=== PATIENT | male | born 1965 | race Hispanic/Latino ===

== ENCOUNTER 2018-05-25 07:38 | Day surgery (SDC) | payer OTHER, SELFPAY ==
[2018-05-25] VITALS (7 sets, daily range): BP systolic 113–154; BP diastolic 82–94; PULSE 69–80; RESP 12–18; TEMP 36.1–36.9; O2SAT 94–98; BMI 31.4
--- NOTE | 2018-05-25 | PATH_ITS ---
[facility] Accession Number: [id number] . 01 Material submitted: . PART A: GASTRIC POLYP PART B: GE JUNCTION PART C: POLYP DESCENDING COLON . 02 Diagnosis: A. Biopsies, Gastric Polyp: Superficial fragments of fundic mucosa with apparent foveolar hyperplasia. Negative for atypia and malignancy. . B. Biopsy, Gastroesophageal Junction: Squamocolumnar junctional mucosa with chronic inflammation, reactive epithelial changes, and scattered squamous intraepithelial eosinophils, all consistent with changes of chronic reflux. Negative for specialized metaplasia of Li's type esophagus. Negative for dysplasia and malignancy. . C. Biopsy, Polyp Descending Colon: Hyperplastic polyp. MR/05/26/2018 . 02 Electronically signed: . Mahad Steward MD, Pathologist NPI- [id number] . 01 Gross description: . Received three formalin-filled containers each labeled with the patient's name. . A. In a container labeled gastric polyp, the specimen consists of a 0.1 cm portion of tissue. Entirely submitted in cassette A. B. In a container labeled GE junction, the specimen consists of two extremely tiny less than 0.1 to 0.1 cm portions of tissue. Entirely submitted in cassette B. C. In a container labeled polyp descending colon are two less than 0.1 to 0.2 cm portions of tissue. Entirely submitted in cassette C. ([facility]:[id number]) /[facility] . 02 Pathologist provided ICD-10: K21.0 . 02 CPT . 647608, 386435, 549223 Performed at: 01 [address] [address], [place], [place] [id number] MD Aniket Manrique MD Phone: [phone] Performed at: 02 [facility] [address] [place] [id number] MD Terri Quezada MD Phone: [phone]
--- NOTE | 2018-05-25 08:14 | PM.HP.1 ---
History of Present Illness Date Patient Seen: 05/25/18 Chief complaint: [id number] COLONOSCOPY/EGD W/POSS BX Narrative: The patient is a 53-year-old male who was last seen in our office on April 26, 2018 for a history of episodic hematemesis as well as a positive fecal occult blood test. Please refer to our office note for further details. The patient has had no further recurrence of episodes of hematemesis since that office visit and has had no evidence of melena or hematochezia Patient History Medical History Depression (Acute) Hematemesis (Acute) History of alcohol abuse (Acute) History of pancreatitis (Acute ~03/2013) History of vomiting (Acute) Hypercholesterolemia (Acute) Hypertension (Acute) Surgical History History of colonoscopy (Acute ~2015) History of esophagogastroduodenoscopy (EGD) (Acute) Social History household members: none Meds Home Medications Medication Instructions Recorded Confirmed Type aspirin 81 mg PO DAILY 05/25/18 05/25/18 History atorvastatin 80 mg PO DAILY 05/25/18 05/25/18 History bupropion HCl [Wellbutrin XL] 100 mg PO DAILY 05/25/18 05/25/18 History bupropion HCl [Wellbutrin XL] 350 mg PO DAILY 05/25/18 05/25/18 History lisinopril 05/25/18 History omeprazole 80 mg PO DAILY 05/25/18 05/25/18 History sertraline [Zoloft] 200 mg PO DAILY 05/25/18 05/25/18 History Allergies Allergy/AdvReac Type Severity Reaction Status Date / Time No Known Drug Allergies Allergy Verified 05/24/18 14:16 Exam Narrative Exam Narrative: General: Patient is overweight, not in apparent distress Cardiovascular: Regular rate and rhythm, no murmurs, rubs, or gallops; no evidence of edema; no palpable abdominal aortic aneurysm Gastrointestinal: Normoactive bowel sounds, soft, nontender, nondistended, no rebound tenderness, no hepatosplenomegaly, no evidence of hernia Assessment & Plan Assessment & Plan narrative: A 53-year-old male with a history of episodic hematemesis and a positive fecal occult blood test who is here for upper endoscopy and colonoscopy for further evaluation Regarding the procedure(s), the risks and potential complications, benefits, and alternatives (including not doing the procedure) were discussed with the patient. The risks include but are not limited to bleeding, splenic injury, infection, perforation which may require surgical intervention, missed lesions, and adverse reactions to sedative medicines. After a question and answer period, the patient agreed to proceed with the procedure(s) and gives informed consent.
[2018-05-25] MEDS: SODIUM CHLORIDE 0.9% 1,000 ML 70 ML IV (08:22)
--- NOTE | 2018-05-25 08:37 | P.OP.ENDO_ITS ---
Operative Date/Time/Diagnoses Date of procedure: 05/25/18 Procedure Notes Procedure in detail: Surgeon: Prakash Morse MD Procedure: Esophagogastroduodenoscopy with biopsy and colonoscopy with polypectomy via biopsy Preoperative diagnosis: Hematemesis, positive fecal occult blood test Postoperative diagnosis: LA grade C reflux esophagitis status post biopsy, small hiatal hernia, multiple gastric polyps status post outside industrial sales representative biopsies; descending colon polyp status post polypectomy, grade 2 internal hemorrhoids Medications: Conscious sedation using 5 mg IV of Midazolam and 100 mcg IV of Fentanyl for EGD; additional 1 mg of IV midazolam for colonoscopy Preanesthesia Assessment An H and P was performed/updated and the Px?s ASA class is 2. The procedure was discussed in detail with the patient. The potential risks and complications including infection, bleeding, missed lesions, perforation, need for surgery in case of perforation, prolonged hospital stay, and were explained. A brief question and answer period was allotted and once all questions were answered, informed consent was obtained. The patient was brought back to the procedure room and placed on standard monitoring. The patient?s vital signs were monitored continuously throughout the entire procedure. Prior to starting, a timeout was performed to confirm the patient?s identity, allergies, medications, and procedure. Procedure in detail The patient was placed in left lateral decubitus position and a bite block was inserted. The tip of the upper endoscope was placed into the mouth and advanced without difficulty under direct visualization into the esophagus. Esophagus: There was note of LA grade C reflux esophagitis in the distal esophagus which was biopsied with minimal bleeding Stomach: Small hiatal hernia; there was note of multiple semi pedunculated and pedunculated polyps throughout the gastric body measuring 5 to 12 mm. Quenching Car Operator biopsies were taken of the largest polyp Duodenum: Normal visualized duodenum to the 2nd portion After the upper endoscopy, preparations were made for the colonoscopy. Once adequate sedation was obtained a BATSHEVA was performed. The digital rectal examination did not reveal any palpable lesions. The tip of the colonoscope was placed in the anal canal and advanced without difficulty all the way to the cecum which was identified by the appendiceal orifice and the ileocecal valve. Careful examination of all molina of the colon was performed with irrigation of any residual stool. In the descending colon, a 3 mm sessile polyp was found and removed by means of cold forceps. Resection and retrieval were complete with minimal bleeding. Retroflexion was performed in the rectum which revealed grade 2 nonbleeding internal hemorrhoids. The patient tolerated the procedure well and will be brought back to the recovery area to be discharged once criteria are met. The prep was judged to be good/excellent and adequate to identify polyps less than 5 mm. The withdrawal time was 8 min. The total physician intraservice time was 23 min. Complications There were no complications and estimated blood loss was minimal. Recommendations Resume previous diet Continue outpatient medications, including omeprazole Anti-reflux measures at all times Avoid any food triggers for reflux symptoms Follow-up pathology results Repeat upper endoscopy in 12 weeks to check healing Repeat colonoscopy in 5 or 10 years depending on pathology results Follow-up at our office with Dr. Chacon if with recurrent symptoms If you have trouble with your hemorrhoids you can also call our office to schedule a hemorrhoid banding evaluation. An emergency contact number was given to the patient for any complications related to the procedure
[2018-05-25] MEDS: MIDAZOLAM 5 MG/5 ML VIAL IV (08:50)
[2018-05-25] MEDS: fentaNYL 250 MCG/5 ML INJ IV (08:52)
--- NOTE | 2018-05-25 09:05 | PM.DS.1 ---
History of Present Illness Chief complaint: [id number] COLONOSCOPY/EGD W/POSS BX Narrative: The patient is a 53-year-old male who was last seen in our office on April 26, 2018 for a history of episodic hematemesis as well as a positive fecal occult blood test. Please refer to our office note for further details. The patient has had no further recurrence of episodes of hematemesis since that office visit and has had no evidence of melena or hematochezia Discharge Providers Discharge Date: 05/25/18 Primary care physician: Jenna Cotton Consults: 05/25/18 08:17 Consult to Respiratory Therapy Evaluate & Treat Comment: Physician Instructions: Evaluate and treat Discharge provider: Prakash Morse MD Exam Vital Signs (past 8 hours): - 05/25/18 08:06 Temperature 98.4 F Pulse Rate 78 Respiratory Rate 15 Blood Pressure 154/91 H Pulse Oximetry 94 Oxygen Delivery Method Room Air Narrative Exam Narrative: General: Patient is overweight, not in apparent distress Cardiovascular: Regular rate and rhythm, no murmurs, rubs, or gallops; no evidence of edema; no palpable abdominal aortic aneurysm Gastrointestinal: Normoactive bowel sounds, soft, nontender, nondistended, no rebound tenderness, no hepatosplenomegaly, no evidence of hernia Discharge Plan Discharge Med Rec/Prescriptions Prescriptions: Continued bupropion HCl [Wellbutrin XL] 300 mg Tablet Extended Release 24 Hr 350 mg PO DAILY RF: 0 bupropion HCl [Wellbutrin XL] 150 mg Tablet Extended Release 24 Hr 100 mg PO DAILY RF: 0 sertraline [Zoloft] 100 mg Tablet 200 mg PO DAILY RF: 0 omeprazole 40 mg Capsule,Delayed Release(Dr/Ec) 80 mg PO DAILY RF: 0 lisinopril 10 mg Tablet RF: 0 atorvastatin 80 mg Tablet 80 mg PO DAILY RF: 0 aspirin 81 mg Tablet,Delayed Release (Dr/Ec) 81 mg PO DAILY RF: 0 Follow up/Referrals: Jenna Cotton [Primary Care Provider] - Discharge Orders: Discharge (Order); Ordered 05/25/18 Ordered By: Prakash Morse Provider Discharge Instructions Diet: Diet as Tolerated Visit Report/Discharge Packet Stand Alone Forms: Colonoscopy Result: [facility], EGD Result: [facility] Discharge Data Primary Care Provider: Jenna Cotton Attending Provider: Prakash Morse
== END 2018-05-25 09:45 | disposition home or self-care (01) ==
PROVIDERS: PCP Physician Assistant Medical; Visit Provider Internal Medicine Gastroenterology
PROC: 0DJ08ZZ Inspection of Upper Intestinal Tract, Via Natural or Artificial Opening Endoscopic (ICD-10-PCS; CPT 43235; principal; 2018-05-25 09:00)
PROC: 0DJD8ZZ Inspection of Lower Intestinal Tract, Via Natural or Artificial Opening Endoscopic (ICD-10-PCS; CPT 45378; 2018-05-25 09:00)
DX: R19.5 Other fecal abnormalities (principal); K92.0 Hematemesis; K21.0 Gastro-esophageal reflux disease with esophagitis; K44.9 Diaphragmatic hernia without obstruction or gangrene; K31.7 Polyp of stomach and duodenum; K64.1 Second degree hemorrhoids; D12.4 Benign neoplasm of descending colon; I10 Essential (primary) hypertension; E78.00 Pure hypercholesterolemia, unspecified; F32.9 Major depressive disorder, single episode, unspecified
CPT/HCPCS: 45380; 43239; 88305; J2250; J3010

== ENCOUNTER 2018-08-31 10:51 | Day surgery (SDC) | payer OTHER, SELFPAY ==
[2018-08-31] VITALS (8 sets, daily range): BP systolic 119–135; BP diastolic 80–94; PULSE 65–79; RESP 14–16; TEMP 36.4–36.6; O2SAT 91–99; BMI 30.9
--- NOTE | 2018-08-31 | PATH_ITS ---
[facility] Accession Number: [id number] . 01 Material submitted: . esophagus - DISTAL ESOPHAGUS . 02 Diagnosis: Distal Esophagus, Biopsy: Squamocolumnar junctional mucosa with no diagnostic abnormality. Negative for intestinal metaplasia. Negative for dysplasia and malignancy. [facility]/09/02/2018 . 02 Electronically signed: . Terri Quezada MD, Pathologist NPI- [id number] . 01 Gross description: . DISTAL ESOPHAGUS: Received in formalin is 1 fragment(s) of arias, soft tissue measuring 0.1 x 0.1 x 0.1 cm which is entirely submitted and submitted entirely in 1 cassette(s) /[facility] /[facility] . 02 Microscopic: . An alcian blue stain was performed to evaluate for intestinal metaplasia and is negative. The control stain showed appropriate reactivity. . 02 Pathologist provided ICD-10: R13.10 . 02 CPT . 472810, 557428 Performed at: 01 [facility] [address] [facility], [place], [place] [id number] MD Aniket Manrique MD Phone: [phone] Performed at: 02 [facility] [address] [place], [place] [id number] MD Terri Quezada MD Phone: [phone]
[2018-08-31] MEDS: SODIUM CHLORIDE 0.9% 1,000 ML 42 ML IV (12:00)
--- NOTE | 2018-08-31 12:35 | PM.HP.1 ---
History of Present Illness Date Patient Seen: 08/31/18 Time Patient Seen: 12:35 Chief complaint: [id number] EGD W/POSS BX Narrative: Follow-up of severe esophagitis. Need to check for healing. Currently on omeprazole 20 mg daily Patient History Medical History (Updated 05/24/18 @ 14:16 by Rylee Lockwood RN) Depression (Acute) Hematemesis (Acute) History of alcohol abuse (Acute) History of pancreatitis (Acute ~03/2013) History of vomiting (Acute) Hypercholesterolemia (Acute) Hypertension (Acute) Surgical History (Updated 05/24/18 @ 14:16 by Rylee Lockwood RN) History of colonoscopy (Acute ~2015) History of esophagogastroduodenoscopy (EGD) (Acute) Social History household members: none Family & Social History Social History: household members none Meds Home Medications Medication Instructions Recorded Confirmed Type aspirin 81 mg PO DAILY 05/25/18 05/25/18 History atorvastatin 80 mg PO DAILY 05/25/18 05/25/18 History bupropion HCl [Wellbutrin XL] 100 mg PO DAILY 05/25/18 05/25/18 History bupropion HCl [Wellbutrin XL] 350 mg PO DAILY 05/25/18 05/25/18 History lisinopril 05/25/18 History omeprazole 80 mg PO DAILY 05/25/18 05/25/18 History sertraline [Zoloft] 200 mg PO DAILY 05/25/18 05/25/18 History Allergies Allergy/AdvReac Type Severity Reaction Status Date / Time No Known Drug Allergies Allergy Verified 08/31/18 11:49 Exam Vital Signs (past 8 hours): - 08/31/18 11:43 Temperature 97.8 F Pulse Rate 79 Respiratory Rate 14 Blood Pressure 131/84 Pulse Oximetry 95 Oxygen Delivery Method Room Air Narrative Exam Narrative: Oropharynx free of lesions Chest clear to auscultation percussion Cardiac exam reveals no S3 or murmur Assessment & Plan Assessment & Plan narrative: History of severe esophagitis, grade C, need to check for complete healing. Risks, benefits, alternatives have been explained.
--- NOTE | 2018-08-31 12:37 | P.OP.ENDO_ITS ---
Operative Date/Time/Diagnoses Date of procedure: 08/31/18 Time of procedure: 12:36 Pre-op diagnosis: See indication and findings Procedure & Clinicians Study performed: EGD Same procedure as scheduled: Yes Indications: History of grade C esophagitis now under different treatment. Need to check for complete healing. Surgeon: Stefan Chacon Procedure Notes Procedure in detail: After informed consent was obtained the patient was placed in the left lateral decubitus position. The video upper scope was placed into the oropharynx and with the patient's health swallowed into the esophagus. The esophagus stomach and duodenum were carefully examined. On withdrawal r etroflexed view the GE junction was performed. The scope was removed. The patient tolerated procedure well. Blood loss none Complications none Sedation Total sedation time7 minutes Fentanyl 100 micro g Versed 4 mg IV titration Findings 1. completely healed esophagitis but with 2 short 1-2 cm tongues of tissue above the squamocolumnar junction. Biopsies were taken to rule out Li's esoph ramos 2. multiple moderate to large fundic gland polyps noted once again 3. Normal duodenal bulb and sweep Patient should merely stay on his omeprazole 20 mg daily at this time. He should follow up in the office to discuss long-term options. If he does have Li's then we will need follow-up endoscopy in 1 year otherwise no routine follow-up.
[2018-08-31] MEDS: MIDAZOLAM 5 MG/5 ML VIAL IV (13:35)
[2018-08-31] MEDS: fentaNYL 250 MCG/5 ML INJ IV (13:36)
--- NOTE | 2018-08-31 14:22 | SUR.PHASEII ---
Pt drowsy. Denied pain. Tolerated full liquids, swallowing without difficulty.
== END 2018-08-31 14:55 | disposition home or self-care (01) ==
LOC: ENDO 10:53
PROVIDERS: PCP Physician Assistant Medical; Visit Provider Internal Medicine Gastroenterology
PROC: 0DJ08ZZ Inspection of Upper Intestinal Tract, Via Natural or Artificial Opening Endoscopic (ICD-10-PCS; CPT 43235; principal; 2018-08-31 13:00)
DX: Z87.19 Personal history of other diseases of the digestive system (principal); K31.7 Polyp of stomach and duodenum
CPT/HCPCS: 43239; 88305; 88313; J2250; J3010

== ENCOUNTER 2020-10-31 16:16 | Emergency (ER) | payer OTHER, SELFPAY ==
[2020-10-31 16:22] VITALS: BMI 31.6
--- NOTE | 2020-10-31 16:23 | ED.GENADULT ---
HPI - General Adult General Chief complaint: Trauma Stated complaint: FELL OFF 12 FOOT LADDER Time Seen by Provider: 10/31/20 16:22 Source: patient Mode of arrival: Ambulatory History of Present Illness HPI narrative: 55-year-old male. Was up on a ladder approximately 12 ft when he fell off the ladder hitting his head. There has been no loss of consciousness. He reports no injuries from the event although he does express some neck discomfort. He arrived by private vehicle. Patient does not know if he is on blood pressure medication. Initial review of his medication by nursing staff did show that he is potentially on Plavix. Related Data Home Medications Medication Instructions Recorded Confirmed aspirin 81 mg tablet,delayed 81 mg PO DAILY 05/25/18 05/25/18 release atorvastatin 80 mg tablet 80 mg PO DAILY 05/25/18 05/25/18 bupropion HCl 150 mg 24 hr tablet, 100 mg PO DAILY 05/25/18 05/25/18 extended release (Wellbutrin XL) bupropion HCl 300 mg 24 hr tablet, 350 mg PO DAILY 05/25/18 05/25/18 extended release (Wellbutrin XL) lisinopril 10 mg tablet 05/25/18 omeprazole 40 mg capsule,delayed 80 mg PO DAILY 05/25/18 05/25/18 release sertraline 100 mg tablet (Zoloft) 200 mg PO DAILY 05/25/18 05/25/18 Allergies Allergy/AdvReac Type Severity Reaction Status Date / Time No Known Drug Allergies Allergy Verified 08/31/18 11:49 Review of Systems Constitutional Constitutional: Denies headache(s) Eyes Eyes: Reports system reviewed and no additional complaints, except as documented ENT Ears, Nose, Mouth, and Throat: Denies headache(s) and Reports neck pain Cardiovascular Cardiovascular: Reports system reviewed and no additional complaints, except as documented Respiratory Respiratory: Reports system reviewed and no additional complaints, except as documented Gastrointestinal Gastrointestinal: Denies abdominal pain Genitourinary Genitourinary: Reports system reviewed and no additional complaints, except as documented Musculoskeletal Musculoskeletal: Denies back pain and Reports neck pain Integumentary/Breasts Skin/Breast: Reports system reviewed and no additional complaints, except as documented Neurologic Neurologic: Denies headache(s) Endocrine Endocrine: Reports system reviewed and no additional complaints, except as documented Hematologic/Lymphatic On Anticoagulants: No Allergic/Immunologic Allergic/Immunologic: Reports system reviewed and no additional complaints, except as documented Patient History Medical History Depression Hematemesis History of alcohol abuse History of pancreatitis (~03/2013) History of vomiting Hypercholesterolemia Hypertension Surgical History (Updated 05/24/18 @ 14:16 by Rylee Lockwood RN) History of colonoscopy (~2015) History of esophagogastroduodenoscopy (EGD) Social History household members: none Exam Initial Vital Signs Initial Vital Signs: Vital Signs Temperature 98.2 F 10/31/20 16:45 Pulse Rate 84 10/31/20 16:45 Respiratory Rate 21 10/31/20 16:45 Blood Pressure 138/91 H 10/31/20 16:45 Pulse Oximetry 97 10/31/20 16:45 Const General: cooperative, healthy appearing, comfortable and well developed HENMT Head: normal to inspection and normocephalic Nose: external nose normal Mouth: oral mucosae normal Eyes General: appearance normal, both eyes and all related structures EOM: EOM intact bilaterally Chest Chest: No crepitus and No tenderness Resp Effort & Inspection: normal respiratory effort Auscultation: clear to auscultation bilaterally Cardio Rate: regular rate Rhythm: regular rhythm GI Inspection: normal to inspection Palpation: soft Back/Spine/Pelvis Cervical Spine: cervical muscular tenderness and cervical spinal tenderness Thoracic/Lumbar Spine: No thoracic spinal tenderness and No lumbar spinal tenderness Skin General: no rashes or lesions noted Neuro General: patient alert, patient awake and patient oriented x3 Speech: speech normal Gait: normal gait Extrem General: normal to inspection and capillary refill normal Other: Pelvis is stable, bilateral ankles knees hips wrist elbow shoulders all full range of motion. Psych Appearance: grossly normal and well kempt Scores GCS [place] coma scale eye opening: Spontaneous Willie coma scale verbal response: Orientated [place] coma scale motor response: Obey commands Willie coma scale total score: 15 Nexus Score for C-Spine Focal Neurologic deficit present: No Midline spinal tenderness present: Yes Altered level of conciousness present: No Intoxication present: No Distracting Injury Present: No Nexus Criteria for C-spine: 1 Course Orders Ordered: ED Orders 10/31/20 16:23 CT cervical spine wo con Stat CT head/brain wo con Stat Vital Signs Vital signs: Vital Signs - 8 hr 10/31/20 16:45 10/31/20 17:34 10/31/20 17:39 Temperature 98.2 F Pulse Rate 84 79 84 Respiratory Rate 21 24 Blood Pressure 138/91 H 139/88 135/88 Pulse Oximetry 97 94 97 Medical Decision Making Imaging Data CT - cervical spine: Radiologist's Impression: [address] [id number] Scan ReportSigned Patient: Colby Chappell AMR#: [id number]: 1965Acct:[id number]/Sex: 55 / MDate of Service: 10/31/20Loc: EDAccession Number: [id number] Procedure: CT cervical spine wo con Ordering Provider: Benjamin Lynch D.O. PROCEDURE: CT CERVICAL SPINE WO CON INDICATIONS: Fall off ladder with neck pain TECHNIQUE: Noncontrast 3 mm thick sections acquired from the skull base to the T4 level. Sagittal and coronal reformats were then constructed. For radiation dose reduction, the following was used: automated exposure control, adjustment of mA and/or kV according to patient size. COMPARISON: None. FINDINGS: Image quality: Excellent. Bones: No fractures or dislocations. Visualized superior ribs are intact. Multilevel degenerative changes most severe at C5-6 and C6-7. There is straightening and slight reversal of normal cervical curvature. Soft tissues: Prevertebral soft tissues are normal in thickness. No paravertebral hematomas. No apical pneumothoraces. IMPRESSION: No visualized fracture. Multilevel degenerative changes. Dictated by: Belem Gar M.D. on 10/31/2020 at 16:46 Approved by: Belem Gar M.D. on 10/31/2020 at 16:47 CT scan - head: Radiologist's Impression: [address] [id number] Scan ReportSigned Patient: Colby Chappell AMR#: [id number]: 1965Acct:[id number]/Sex: 55 / MDate of Service: 10/31/20Loc: EDAccession Number: [id number] Procedure: CT head/brain wo con Ordering Provider: Benjamin Lynch D.O. PROCEDURE: CT HEAD/BRAIN WO CON INDICATIONS: Fall off ladder with head injury on blood thinners TECHNIQUE: Noncontrast 4.5 mm thick angled axial sections acquired from the foramen magnum to the vertex, with coronal and sagittal reformats. For radiation dose reduction, the following was used: automated exposure control, adjustment of mA and/or kV according to patient size. COMPARISON: [facility], CT, CT CERVICAL SPINE WO CON, 10/31/2020, 16:26. FINDINGS: Image quality: Excellent. CSF spaces: Basal cisterns are patent. No extra-axial fluid collections. Ventricles are normal in size and shape. Brain: No midline shift. No intracranial masses or hemorrhage. Pacheco-white matter interface is normal. Skull and face: Calvarium and visualized facial bones are intact, without suspicious lesions. Sinuses: Visualized sinuses and mastoids are clear. IMPRESSION: 1. No acute intracranial process. Dictated by: Belem Gar M.D. on 10/31/2020 at 16:45 Approved by: Belem Gar M.D. on 10/31/2020 at 16:46 MDM Narrative Medical decision making narrative: Patient has no abnormal findings on the exam except for paraspinal and midline cervical spinal tenderness. His CT scans were unremarkable. He is alert oriented x3. GCS of 15. Cervical collar was removed. Will discharge home. I do not feel the need to x-ray any extremities is he is not complaining of any discomfort of them. He was given strict return precautions and follow-up instructions. He expressed understanding and agreement. Discharge Plan Departure Patient Disposition: Home Clinical Impression: CHI (closed head injury), Fall from ladder Instructions: DI for Closed Head Injury Activity Restrictions/Additional Instructions: Continue to take all of your medications as directed. Expect to be sore tomorrow. Return to the emergency department for any new or worsening symptoms like we discussed Prescriptions: No Action bupropion HCl [Wellbutrin XL] 300 mg Tablet Extended Release 24 Hr 350 mg PO DAILY RF: 0 bupropion HCl [Wellbutrin XL] 150 mg Tablet Extended Release 24 Hr 100 mg PO DAILY RF: 0 sertraline [Zoloft] 100 mg Tablet 200 mg PO DAILY RF: 0 omeprazole 40 mg Capsule,Delayed Release(Dr/Ec) 80 mg PO DAILY RF: 0 lisinopril 10 mg Tablet RF: 0 atorvastatin 80 mg Tablet 80 mg PO DAILY RF: 0 aspirin 81 mg Tablet,Delayed Release (Dr/Ec) 81 mg PO DAILY RF: 0 Referrals: Jenna Cotton PA-C [Primary Care Provider] - Stand Alone Forms: Work Release Note
[2020-10-31 16:45] VITALS: BP 138/91; PULSE 84; RESP 21; TEMP 36.8; O2SAT 97
[2020-10-31 17:34] VITALS: BP 139/88; PULSE 79; RESP 24; O2SAT 94
[2020-10-31 17:39] VITALS: BP 135/88; PULSE 84; O2SAT 97
== END 2020-10-31 17:39 | disposition home or self-care (01) ==
PROVIDERS: Emergency Provider Emergency Medicine; PCP Physician Assistant Medical
DX: S09.8XXA Other specified injuries of head, initial encounter (principal); M54.2 Cervicalgia; W11.XXXA Fall on and from ladder, initial encounter; Y99.0 Civilian activity done for income or pay; Z79.82 Long term (current) use of aspirin
CPT/HCPCS: 36415; 70450; 72125; 99284